=== PATIENT | male | born 1945 | race Hispanic/Latino ===

== ENCOUNTER 2018-12-11 15:01 | Observation (INO) | payer MEDICARE ==
[~2018-12-11] VITALS: Ht 175.3 cm; Wt 75.7 kg
--- OUTSIDE RECORDS SUMMARY | 2018-12-11 15:05 | XMS REPORT | Continuity of Care Document ---
Author Author [facility] Interface Address Unknown Phone Unavailable Problems Problem Status Onset Date Classification Date Reported Comments Source 715.16-LOCALIZED, PRIMARY OSTEOARTHRITIS Active 12/18/2012 [place] Gout<sup>1</sup> Active Problem 11/26/2017 Data migrated from [employer] on 04/19/15. [facility] Hyperlipidemia<sup>2</sup> Active Problem 11/26/2017 Data migrated from [employer] on 04/19/15. [facility] Osteoarthritis<sup>3</sup> Active Problem 11/26/2017 Data migrated from [employer] on 04/19/15. [facility] PAIN Active [facility] PAIN IN LIMB Active [facility] CHONDROMALACIA PATELLAE Active [facility] JOINT EFFUSION-L/LEG Active [facility] LOC PRIM OSTEOART-L/LEG Active [facility] Medications Medication Details Route Status Patient Instructions Ordering Provider Order Date Source Allergies, Adverse Reactions, Alerts Substance Category Reaction Severity Reaction type Status Date Reported Comments Source Immunizations Immunization Date Given Site Status Last Updated Comments Source Results Order Name Results Value Reference Range Date Interpretation Comments Source Hand 2 views DX Hand 2 views DX EXAM: XR RIGHT HAND 2 VIEWS DATE: 11/23/2017 10:13 AM FINANCIAL ADMINISTRATIVE ASSISTANT INDICATION: - M79.641 Pain in right hand COMPARISON: None. TECHNIQUE: PA and lateral radiographs of the hand FINDINGS: No acute fracture or malalignment is identified. Joint space narrowing and minimal radial subluxation is identified at the 2nd and 3rd metacarpophalangeal joints. There is also mild joint space narrowing and osteophyte formation of the distal and proximal interphalangeal joints and 1st carpometacarpal joint. Cystic change in the lunate, proximal scaphoid, and ulnar styloid. No soft tissue abnormality is identified. IMPRESSION: 1. Moderate degenerative changes of the hand, worst at the interphalangeal joints and 2nd and 3rd metacarpophalangeal joints. 2. Cystic change in the lunate, proximal scaphoid, and ulnar styloid. 11/23/2017 - - This report was dictated by a Children'S Entertainer/Fellow. I have personally reviewed the images as well as the Resident's interpretation and agree with the findings. Read by: Hector Trujillo MD Resident: Hector Trujillo MD Dictated Date/time: 11/23/17 10:55 Electronically Signed by: Jd Manzano MD 11/23/17 14:59 FINAL REPORT [facility] Ext Upper Venous Doppler Unilat US Ext Upper Venous Doppler Unilat US EXAM: US RIGHT UPPER EXTREMITY VENOUS DOPPLER EXAM: US RIGHT UPPER EXTREMITY ARTERIAL DOPPLER DATE: 11/01/2017 12:39 PM FINANCIAL ADMINISTRATIVE ASSISTANT INDICATION: - right arm swelling,M79.631 Pain in right forearm. Pain, swelling, and redness with warm to touch in the right arm. No known history of injury. ADDITIONAL INFORMATION: None. COMPARISON: None. TECHNIQUE: Multiplanar grayscale, color Doppler and spectral Doppler ultrasound of the right upper extremity veins and arteries and of the right upper extremity were obtained. FINDINGS: Right Upper Extremity Veins: Internal Jugular: Patent. Subclavian: Patent. Axillary: Patent. Brachial: Patent. Basilic: Patent. Cephalic: Patent. Right Upper Extremity Arteries: Triphasic waveforms throughout with no significant elevations or decreases in peak systolic or diastolic velocities. Common carotid: Patent with no stenosis Subclavian: Patent with no stenosis Axillary: Patent with no stenosis Brachial: Patent with no stenosis Radial: Patent with no stenosis Ulnar: Patent with no stenosis Other: None. IMPRESSION: 1. No deep venous thrombosis (DVT). 2. No stenoses or other sonographic abnormalities of the interrogated right upper extremity arterial structures. 11/01/2017 - - Read by: Terell Pritchett MD Dictated Date/time: 11/01/17 14:02 Electronically Signed by: Terell Pritchett MD 11/01/17 14:08 FINAL REPORT [facility] Ext Upper Arterial Unilat Doppler US Ext Upper Arterial Unilat Doppler US EXAM: US RIGHT UPPER EXTREMITY VENOUS DOPPLER EXAM: US RIGHT UPPER EXTREMITY ARTERIAL DOPPLER DATE: 11/01/2017 12:39 PM FINANCIAL ADMINISTRATIVE ASSISTANT INDICATION: - right arm swelling,M79.631 Pain in right forearm. Pain, swelling, and redness with warm to touch in the right arm. No known history of injury. ADDITIONAL INFORMATION: None. COMPARISON: None. TECHNIQUE: Multiplanar grayscale, color Doppler and spectral Doppler ultrasound of the right upper extremity veins and arteries and of the right upper extremity were obtained. FINDINGS: Right Upper Extremity Veins: Internal Jugular: Patent. Subclavian: Patent. Axillary: Patent. Brachial: Patent. Basilic: Patent. Cephalic: Patent. Right Upper Extremity Arteries: Triphasic waveforms throughout with no significant elevations or decreases in peak systolic or diastolic velocities. Common carotid: Patent with no stenosis Subclavian: Patent with no stenosis Axillary: Patent with no stenosis Brachial: Patent with no stenosis Radial: Patent with no stenosis Ulnar: Patent with no stenosis Other: None. IMPRESSION: 1. No deep venous thrombosis (DVT). 2. No stenoses or other sonographic abnormalities of the interrogated right upper extremity arterial structures. 11/01/2017 - - Read by: Terell Pritchett MD Dictated Date/time: 11/01/17 14:02 Electronically Signed by: Terell Pritchett MD 11/01/17 14:08 FINAL REPORT [facility] Knee 3 views DX Knee 3 views DX EXAM: XR KNEE 3 VIEWS DATE: 03/03/2017 10:44 AM CDT INDICATION: pain and swelling, no trauma COMPARISON: None TECHNIQUE: 3 views of the knee Laterality: Left FINDINGS: No acute fracture or malalignment is identified. Moderate medial compartment narrowing with large marginal osteophyte. Mild patellofemoral compartment narrowing with small osteophytes. Small knee joint effusion. No soft tissue abnormality is identified. IMPRESSION: 1. No acute bone abnormality. 2. Moderate medial and mild patellofemoral compartment osteoarthrosis. 03/03/2017 - - Read by: Jd Manzano MD Dictated Date/time: 03/03/17 13:23 Electronically Signed by: Jd Manzano MD 03/03/17 13:24 FINAL REPORT [facility] Vital Signs Vital Sign Value Date Comments Source Encounters Location Location Details Encounter Type Encounter Number Reason For Visit Attending Provider ADM Date DC Date Status Source [facility] Outpatient [id number] PAIN ADITI ELLINGTON 11/16/2012 Active [facility] Out[facility] [id number] 715.16-LOCALIZED, PRIMARY OSTEOARTHRITIS OF LOWER LEG EMELIA HUNTLEY 12/20/2012 Active [facility] [id number] Lachelle Thomasirez 03/03/2017 03/04/2017 [facility] [id number] Lamin Mason 11/01/2017 11/02/2017 [facility] [id number] Mike Munson 11/23/2017 11/24/2017 [facility] Procedures Procedure Code Date Perfomer Comments Source
--- OUTSIDE RECORDS SUMMARY | 2018-12-11 15:05 | XMS REPORT | Summary of Care ---
Author Author [facility] Organization [facility] Address Unknown Phone Unavailable Encounter [facility] Encntr_alihayde(FIN) [id number] Date(s): 03/03/17 - 03/03/17 [facility] [address] [place] [address]- [place] [phone] Discharge Disposition: Home or Self Care Attending Physician: Lachelle Espana MD Vital Signs No data available for this section Problem List Condition Effective Dates Status Health Status Informant Gout1 Active Hyperlipidemia2 Active Osteoarthritis3 Active 1Data migrated from [employer] on 04/19/15. 2Data migrated from [employer] on 04/19/15. 3Data migrated from [employer] on 04/19/15. Allergies, Adverse Reactions, Alerts Substance Reaction Severity Status NKDA1 Active 1Data migrated from [employer] on 01/13/16. Originally documented as NKA. Medications No data available for this section Results No data available for this section Immunizations No data available for this section Procedures No data available for this section Social History No data available for this section Assessment and Plan No data available for this section
--- OUTSIDE RECORDS SUMMARY | 2018-12-11 15:05 | XMS REPORT | Summary of Care ---
Author Author [facility] Organization [facility] Address Unknown Phone Unavailable Encounter [facility] Iramntr_jackelyn(FIN) [id number] Date(s): 11/23/17 - 11/23/17 [facility] [address] [place] [address]- [place] [phone] Discharge Disposition: Home or Self Care Attending Physician: Mike Munson MD Vital Signs No data available for [...]
--- OUTSIDE RECORDS SUMMARY | 2018-12-11 15:05 | XMS REPORT | Summary of Care ---
Author Author [facility] Organization [facility] Address Unknown Phone Unavailable Encounter [facility] Shanna(FIN) [id number] Date(s): 11/01/17 - 11/01/17 [facility] [address] [place] [address]- [place] [phone] Discharge Disposition: Home or Self Care Attending Physician: Lamin Hernandez MD Vital Signs No data available for [...]
[2018-12-11] MEDS ORDERED: SODIUM CHLORIDE 0.9% 1000ML 1,000 ML IV SCH (15:15)
[2018-12-11] MEDS ORDERED: PIPER-TAZ 3.375 GM 50 ML IV ONE (15:30)
[2018-12-11] MEDS ORDERED: VANCOMYCIN 1GM/NS 250 ML 250 ML IV ONE (15:30)
[2018-12-11 15:50] LABS: BASOPHILS % 0.5 % (0.0-1.0); EOSINOPHILS # (AUTO) 0.1 (0.0-0.4); EOSINOPHILS % 1.6 % (0.0-6.0); HEMATOCRIT 38.2 % (38.2-49.6); HEMOGLOBIN 12.6 g/dL (14.0-18.0); LYMPHOCYTES # (AUTO) 1.4 (1.0-3.2); LYMPHOCYTES % 17.5 % (18.0-39.1); MEAN CORPUSCULAR HEMOGLOBIN 31.2 pg (28-32); MEAN CORPUSCULAR VOLUME 94.6 fL (81-99); MONOCYTES % 12.3 % (4.4-11.3); NEUTROPHILS # (AUTO) 5.2 (2.1-6.9); NEUTROPHILS % 67.7 % (38.7-80.0); PLATELET COUNT 195 x10e3/uL (140-360); RED BLOOD COUNT 4.04 x10e6/uL (4.3-5.7); RED CELL DISTRIBUTION WIDTH 12.7 % (11.7-14.4)
--- NOTE | 2018-12-11 15:51 | Diagnostic Imaging Report ---
Examination: Single AP view of the chest. COMPARISON: None. INDICATION: Pain and swelling in right foot DISCUSSION: Lungs are well-inflated. No focal airspace consolidation, pleural effusion, or pneumothorax. Cardiomediastinal contour and pulmonary vasculature are within normal limits for AP technique. No acute osseous abnormality. IMPRESSION: 1. No acute cardiopulmonary abnormalities. Signed by: Dr. Don Rowland M.D. on 12/11/2018 3:47 PM
--- NOTE | 2018-12-11 15:53 | Diagnostic Imaging Report ---
Exam: Right foot 3 views History: Pain and swelling of foot Comparison: None. Findings: No acute, displaced fracture or dislocation. Appropriate alignment between the medial cuneiform and second metatarsal base in keeping with an intact Lisfranc ligament. Scattered degenerative changes of the hindfoot and first metatarsophalangeal joint. No gross soft tissue laceration or radiopaque foreign body. Impression: No acute osseous abnormality. Signed by: Dr. Don Rowland M.D. on 12/11/2018 3:49 PM
[2018-12-11 15:57] LABS: BILIRUBIN,URINE NEGATIVE (NEGATIVE); CLARITY,URINE CLEAR (CLEAR); COLOR,URINE YELLOW (YELLOW); KETONES,URINE NEGATIVE (NEGATIVE); LEUKOCYTE ESTERASE ,URINE NEGATIVE (NEGATIVE); NITRITE,URINE NEGATIVE (NEGATIVE); PROTEIN,URINE DIPSTICK NEGATIVE (NEGATIVE); URINE UROBILINOGEN 0.2 mg/dL (0.2 - 1)
[2018-12-11 16:03] LABS: BACTERIA,URINE RARE /HPF
[2018-12-11 16:04] LABS: ALBUMIN 3.7 g/dL (3.5-5.0); ALBUMIN/GLOBULIN RATIO 1.1 (0.8-2.0); ANION GAP 13.3 mmol/L (8-16); CALCIUM 8.9 mg/dL (8.4-10.2); CREATININE, SERUM 1.57 mg/dL (0.72-1.25); MAGNESIUM 2.4 MG/DL (1.3-2.1); POTASSIUM 4.3 mmol/L (3.5-5.1)
[2018-12-11] MEDS ORDERED: ALLOPURINOL300 MG PO (16:04)
[2018-12-11] MEDS ORDERED: BENICAR HCT 201 EACH PO (16:04)
[2018-12-11] MEDS ORDERED: ONDANSETRON HCL INJ 2MG/ML 2ML 2 MG/ML VIAL IV PRN (17:15)
[2018-12-11] MEDS ORDERED: MORPHINE SULFATE INJ 4 MG/ML INJ 1ML IV PRN (17:15)
--- OUTSIDE RECORDS SUMMARY | 2018-12-11 17:30 | XMS REPORT ---
Author Author [facility] Address Unknown Phone Unavailable Care Team Providers Care Load Checker Name Role Phone XIMENA DUGAN PP Unavailable SWEET, Lalo LAINANCY Unavailable Unavailable Problems This patient has no known problems. Allergies, Adverse Reactions, Alerts This patient has no known allergies or adverse reactions. Medications This patient has no known medications. Encounters Start Date/Time End Date/Time Encounter Type Admission Type Attending Clinicians Care Facility Care Department Encounter ID 2017-06-21 00:01:00 2017-06-21 00:01:00 Outpatient [facility] [id number] 2017-06-14 18:21:00 2017-06-14 18:21:00 Inpatient [facility] [id number] Results Test Description Test Time Test Comments Text Results Atomic Results Result Comments FOOT RIGHT COMPLETE 2018-12-11 15:48:00 [place] [address] Patient Name: DERECK EDUARDO MR #: [id number] : 1945 Age/Sex: 73/M Req #: [id number] Adm Physician: Ordered by: ADRIÁN FROST GOSPEL WORKER Report #: [id number] Location: ER Room/Bed: Procedure: [id number] DX/FOOT RIGHT COMPLETE Exam Date: 12/11/18 Exam Time: 1526 REPORT STATUS: Signed Exam: Right foot 3 views History: Pain and swelling of foot Comparison: None. Findings: No acute, displaced fracture or dislocation. Appropriate alignment between the medial cuneiform and second metatarsal base in keeping with an intact Lisfranc ligament. Scattered degenerative changes of the hindfoot and first metatarsophalangeal joint. No gross soft tissue laceration or radiopaque foreign body. Impression: No acute osseous abnormality. Signed by: Dr. Ernst Florian M.D. on 12/11/2018 3:49 PM Dictated By: ERNST FLORIAN MD 48 Transcribed By: ANGEL on 12/11/181548 COPY TO: ADRIÁN FROST NP CHEST SINGLE (PORTABLE) 2018-12-11 15:46:00 [place] [address] Patient Name: DERECK EDUARDO MR #: [id number] : 1945 Age/Sex: 73/M Req #: [id number] Adm Physician: Ordered by: ADRIÁN FROST GOSPEL WORKER Report #: [id number] Location: ER Room/Bed: Procedure: [id number] DX/CHEST SINGLE (PORTABLE) Exam Date: 12/11/18 Exam Time: 1526 REPORT STATUS: Signed Examination: Single AP view of the chest. COMPARISON: None. INDICATION: Pain and swelling in right foot DISCUSSION: Lungs are well-inflated. No focal airspace consolidation, pleural effusion, or pneumothorax. Cardiomediastinal contour and pulmonary vasculature are within normal limits for AP technique. No acute osseous abnormality. IMPRESSION: 1. No acute cardiopulmonary abnormalities. Signed by: Dr. Ernst Florian M.D. on 12/11/2018 3:47 PM Dictated By: ERNST FLORIAN MD 46 Transcribed By: ANGEL on 12/11/181546 COPY TO: ADRIÁN FROST NP
[2018-12-11] MEDS: SODIUM CHLORIDE 0.9% 1000ML 1,000 ML IV SCH (17:35)
[2018-12-11 17:45] VITALS: BP 165/72
[2018-12-11 19:54] VITALS: BP 165/72
[2018-12-11 20:02] VITALS: BP 165/72
[2018-12-11 20:08] VITALS: BP 123/56
[2018-12-11] MEDS: PIPER-TAZ 3.375 GM 50 ML IV SCH (21:53)
[2018-12-11 23:26] VITALS: BP 123/56
[2018-12-12] VITALS (8 sets, daily range): BP systolic 122–145; BP diastolic 56–63
[2018-12-12] MEDS: SODIUM CHLORIDE 0.9% 1000ML 1,000 ML IV SCH ×2 (04:12→22:28)
[2018-12-12] MEDS: PIPER-TAZ 3.375 GM 50 ML IV SCH ×4 (04:12→22:28)
[2018-12-12 05:32] LABS: BASOPHILS % 0.4 % (0.0-1.0); EOSINOPHILS # (AUTO) 0.2 (0.0-0.4); EOSINOPHILS % 2.5 % (0.0-6.0); HEMATOCRIT 32.6 % (38.2-49.6); HEMOGLOBIN 10.9 g/dL (14.0-18.0); LYMPHOCYTES # (AUTO) 1.7 (1.0-3.2); LYMPHOCYTES % 23.8 % (18.0-39.1); MEAN CORPUSCULAR HEMOGLOBIN 31.4 pg (28-32); MEAN CORPUSCULAR HGB CONC 33.4 g/dL (31-35); MEAN CORPUSCULAR VOLUME 93.9 fL (81-99); MONOCYTES % 13.7 % (4.4-11.3); NEUTROPHILS # (AUTO) 4.2 (2.1-6.9); NEUTROPHILS % 59.3 % (38.7-80.0); PLATELET COUNT 155 x10e3/uL (140-360); RED BLOOD COUNT 3.47 x10e6/uL (4.3-5.7); RED CELL DISTRIBUTION WIDTH 12.7 % (11.7-14.4)
[2018-12-12 06:09] LABS: ALBUMIN 3.1 g/dL (3.5-5.0); ALBUMIN/GLOBULIN RATIO 1.1 (0.8-2.0); ANION GAP 12.5 mmol/L (8-16); CALCIUM 8.6 mg/dL (8.4-10.2); CREATININE, SERUM 1.52 mg/dL (0.72-1.25); POTASSIUM 4.5 mmol/L (3.5-5.1)
[2018-12-12] MEDS: VANCOMYCIN 1GM/NS 250 ML 250 ML IV SCH (09:10)
[2018-12-12] MEDS: ALLOPURINOL 300 MG TAB PO SCH ×2 (09:10→16:47)
--- NOTE | 2018-12-12 11:34 | NUR ---
CHUYITA EXPLAINED, SIGNED AND ON CHART COPY TO PT PT LIVES WITH HIS IN A HOUSE IN [place] PT IS RETIRED INDEPENDENT PCP DR MINERVA NINO GOUT GAVE PT MY CARD FOR QUESTIONS/CONCERNS WROTE MY NAME AND NUMBER ON BOARD IN PT'S ROOM
--- NOTE | 2018-12-12 13:49 | NUR ---
Nutrition Screen Note RD Recommendation for Physician: -Continue cardiac diet as ordered Plan of Care: RD following, monitoring for tolerance and adequacy Nutrition reason for involvement: Nutrition Risk Trigger MST Primary Diagnose(s): cellulitis, renal insufficiency PMH: No H&P in chart Ht: 69in Wt: 171.31lb BMI: 25.3kg/m2 IBW: 160lb RD Assessment: (12/12/18) Chart reviewed. Labs and meds reviewed. 73yo M, who is admitted for cellulitis. Visited pt in the room. Pt denies any change in diet or recent weight loss SYSTEM ANALYST. Pt reports having good appetite with 100% recorded meal intake since admission. No GI complains noted. LBM 12/11, normal per pt. Pt denies any chewing or swallowing issue. Will continue to monitor and follow. Current Diet: cardiac diet Malnutrition Evaluation (12/12/2018) The patient does not meet criteria for a specified degree of malnutrition at this time. Will re-evaluate at follow-up as appropriate. Diet Education Needs Assessment: Diet education not indicated. Nutrition Care Level: low Signed: Marcia Lan, MS, RD, LD
--- NOTE | 2018-12-12 14:40 | NUR ---
Visit made by the Spiritual Care Department Pastoral Visitor, Kimberly Chapman. Pt sleeping soundly and no family present. Pastoral Visitor left a card describing availability of bioassayist and instructions on how to contact a bioassayist. NEEMA CHOE [place] Spiritual Care Department O: [phone] Pager: [phone] ([phone] number calling from)
[2018-12-12] MEDS ORDERED: COLCHICINE 0.6 MG TAB PO NR ×4 (17:45→22:45)
[2018-12-12] MEDS ORDERED: HYDRALAZINE HCL 20 MG/ML VIAL IV PRN (17:45)
[2018-12-12] MEDS: FAMOTIDINE 20 MG TAB PO SCH (18:15)
[2018-12-12] MEDS: ENOXAPARIN 30 MG/0.3 ML SYR SC SCH (18:54)
[2018-12-13] VITALS (8 sets, daily range): BP systolic 114–137; BP diastolic 55–62
[2018-12-13] MEDS: PIPER-TAZ 3.375 GM 50 ML IV SCH ×4 (03:49→22:48)
[2018-12-13 05:18] LABS: BASOPHILS % 0.7 % (0.0-1.0); EOSINOPHILS # (AUTO) 0.2 (0.0-0.4); EOSINOPHILS % 3.2 % (0.0-6.0); HEMATOCRIT 34.9 % (38.2-49.6); HEMOGLOBIN 11.4 g/dL (14.0-18.0); LYMPHOCYTES # (AUTO) 1.8 (1.0-3.2); LYMPHOCYTES % 29.5 % (18.0-39.1); MEAN CORPUSCULAR HGB CONC 32.7 g/dL (31-35); MEAN CORPUSCULAR VOLUME 94.8 fL (81-99); MONOCYTES # (AUTO) 0.8 (0.2-0.8); MONOCYTES % 13.5 % (4.4-11.3); NEUTROPHILS # (AUTO) 3.2 (2.1-6.9); NEUTROPHILS % 52.6 % (38.7-80.0); PLATELET COUNT 179 x10e3/uL (140-360); RED BLOOD COUNT 3.68 x10e6/uL (4.3-5.7); RED CELL DISTRIBUTION WIDTH 12.5 % (11.7-14.4)
[2018-12-13 05:51] LABS: CALCIUM 8.6 mg/dL (8.4-10.2); CREATININE, SERUM 1.43 mg/dL (0.72-1.25)
[2018-12-13 05:57] LABS: THYROID STIMULATING HORMONE 1.437 uIU/mL (0.350-4.940)
--- NOTE | 2018-12-13 07:39 | NUR ---
PT RESTING IN BED, HEAD AT FOOT OF BED TO KEEP RIGHT LEG/FOOT ELEVATED. NO C/O PAIN OR S/S DISTRESS AT THIS TIME. FAMILY AT BEDSIDE.
[2018-12-13] MEDS: FAMOTIDINE 20 MG TAB PO SCH ×2 (08:51→17:25)
[2018-12-13] MEDS: ALLOPURINOL 300 MG TAB PO SCH ×2 (08:51→17:25)
[2018-12-13] MEDS: LOSARTAN POTASSIUM 100 MG TAB PO SCH (08:51)
[2018-12-13] MEDS: VANCOMYCIN 1GM/NS 250 ML 250 ML IV SCH (08:51)
[2018-12-13] MEDS: COLCHICINE 0.6 MG TAB PO SCH (08:51)
[2018-12-13] MEDS ORDERED: ONDANSETRON HCL INJ 2MG/ML 2ML 2 MG/ML VIAL IV PRN (10:45)
[2018-12-13] MEDS ORDERED: ACETAMINOPHEN 325 MG TAB PO PRN (10:45)
[2018-12-13] MEDS ORDERED: HYDRALAZINE HCL 20 MG/ML VIAL IV PRN (10:45)
--- NOTE | 2018-12-13 17:00 | NUR ---
CM PROVIDED PT WITH ROLLING WALKER FOR DC
[2018-12-13] MEDS: ENOXAPARIN 30 MG/0.3 ML SYR SC SCH (17:25)
[2018-12-13] MEDS ORDERED: DIPHENOXYLATE/ATROPINE TAB PO ONE (18:00)
--- NOTE | 2018-12-13 19:00 | NUR ---
received report from night nurse. patient is resting in bed. bed is in lowest position and call torre is within reach. will continue to monitor patient.
[2018-12-14 03:48] LABS: BASOPHILS % 0.6 % (0.0-1.0); EOSINOPHILS # (AUTO) 0.3 (0.0-0.4); EOSINOPHILS % 5.5 % (0.0-6.0); HEMATOCRIT 33.4 % (38.2-49.6); HEMOGLOBIN 11.3 g/dL (14.0-18.0); LYMPHOCYTES # (AUTO) 1.7 (1.0-3.2); LYMPHOCYTES % 36.1 % (18.0-39.1); MEAN CORPUSCULAR HEMOGLOBIN 31.5 pg (28-32); MEAN CORPUSCULAR HGB CONC 33.8 g/dL (31-35); MONOCYTES # (AUTO) 0.5 (0.2-0.8); MONOCYTES % 11.5 % (4.4-11.3); NEUTROPHILS # (AUTO) 2.2 (2.1-6.9); NEUTROPHILS % 46.1 % (38.7-80.0); PLATELET COUNT 200 x10e3/uL (140-360); RED BLOOD COUNT 3.59 x10e6/uL (4.3-5.7); RED CELL DISTRIBUTION WIDTH 12.3 % (11.7-14.4)
[2018-12-14] MEDS: PIPER-TAZ 3.375 GM 50 ML IV SCH ×2 (03:58→09:13)
[2018-12-14 04:00] VITALS: BP 114/56
[2018-12-14 04:26] LABS: ANION GAP 12.2 mmol/L (8-16); CALCIUM 8.8 mg/dL (8.4-10.2); CREATININE, SERUM 1.41 mg/dL (0.72-1.25); MAGNESIUM 2.3 MG/DL (1.3-2.1); POTASSIUM 4.2 mmol/L (3.5-5.1)
[2018-12-14 04:39] LABS: ERYTHROCYTE SEDIMENTATION RATE 84 mm/hr (0-13)
--- NOTE | 2018-12-14 07:01 | NUR ---
report given to day nurse. patient is resting comfortably in bed. bed is in lowest position and call light is within reach.
[2018-12-14 07:41] VITALS: BP 107/56
[2018-12-14 08:06] VITALS: BP 107/56
[2018-12-14] MEDS ORDERED: LEVAQUIN500 MG PO (08:55)
[2018-12-14] MEDS ORDERED: ALLOPURINOL300 MG PO (08:55)
[2018-12-14] MEDS ORDERED: Colchicine PO (08:55)
[2018-12-14] MEDS: COLCHICINE 0.6 MG TAB PO SCH (09:13)
[2018-12-14] MEDS: FAMOTIDINE 20 MG TAB PO SCH (09:13)
[2018-12-14] MEDS: ALLOPURINOL 300 MG TAB PO SCH (09:13)
[2018-12-14] MEDS: LOSARTAN POTASSIUM 100 MG TAB PO SCH (09:13)
--- NOTE | 2018-12-14 09:14 | NUR ---
pt resting in bed, family at bedside. Nicky ARMATURE VARNISHER on unit, pt may dc after finished morning abx
[2018-12-14] MEDS: VANCOMYCIN 1GM/NS 250 ML 250 ML IV SCH (10:04)
[2018-12-14 11:16] VITALS: BP 117/57
--- NOTE | 2018-12-14 12:43 | NUR ---
reviewed dc instructions with patient, verbalized understanding. pt has walker at bedside. dc stable, pending transportation
--- NOTE | 2018-12-14 13:27 | NUR ---
pt dc stable
--- NOTE | 2018-12-15 00:11 | Discharge Summary ---
ADMISSION DIAGNOSES: 1. Cellulitis, right foot. 2. Acute gout. 3. Hypertension with chronic kidney disease 3. 4. Chronic kidney disease 3. DISCHARGE DIAGNOSES: 1. Cellulitis, right foot. 2. Acute gout. 3. Hypertension with chronic kidney disease 3. 4. Chronic kidney disease 3. HISTORY: History of hypertension and gout. SURGICAL HISTORY: None. FAMILY HISTORY: Noncontributory. SOCIAL HISTORY: Noncontributory. HOSPITAL COURSE: [place]-thnc-old male complains of 2 to 3 days of worsening erythema and swelling of the right foot started at lateral aspect and spread over dorsum of the foot. On admission, patient was started on IV vanc and Zosyn as well as colchicine and allopurinol. Uric acid was checked which was 4.5. The patient had an ESR of 84. After 2 days of colchicine, allopurinol, and antibiotics, patient is feeling much better. Patient will be discharged home and follow up with primary care in 1 to 2 weeks. He is already taking allopurinol b.i.d., so he was given a prescription for colchicine daily and Levaquin times 4 more days. Patient and family understands discharge instructions and agreed to plan. Vital signs stable. Patient afebrile. Dictated by Nicky Fisher NP RACH MCFADDEN MD Job#: [id number]
== END 2018-12-14 13:25 | disposition home or self-care (01) ==
LOC: ER 15:01 → ERHOLD 17:27 → IMCU 17:47
PROVIDERS: ADMIT Internal Medicine; ATTEND Internal Medicine
DX: L03.115 Cellulitis of right lower limb (principal); M10.071 Idiopathic gout, right ankle and foot; I12.9 Hypertensive chronic kidney disease with stage 1 through stage 4 chronic kidney disease, or unspecified chronic kidney disease; N18.3 Chronic kidney disease, stage 3 (moderate)
CPT/HCPCS: 36415 ×4; 71045; 73630; 80048 ×2; 80053 ×2; 81001; 83605; 83735 ×2; 84443; 84550; 85025 ×4; 85651; 86140; 87040; 97116; 97161; 99284; G0378 ×4; J1650 ×2; J2270; J2543 ×4; J3370 ×4; J7030 ×2